=== PATIENT | female | born 1955 | race Two or more races ===

== ENCOUNTER 2020-01-22 13:54 | Emergency (ER) | payer OTHER ==
[~2020-01-22] VITALS: Ht 167.6 cm; Wt 90.7 kg
[2020-01-22 14:10] VITALS: BP 150/82
[2020-01-22] MEDS ORDERED: Methocarbamol 750mg tab ORAL ONE (14:30)
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
[2020-01-22] MEDS ORDERED: TYLENOL EXTRA500 MG ORAL (15:59)
[2020-01-22] MEDS ORDERED: LIDODERM700 M1 TOPIC (15:59)
[2020-01-22] MEDS ORDERED: ROBAXIN-500MG ORAL (15:59)
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
[2020-01-22 16:35] VITALS: BP 144/80
== END 2020-01-22 16:35 | disposition home or self-care (01) ==
LOC: EMR 14:15
DX: S16.1XXA Strain of muscle, fascia and tendon at neck level, initial encounter (principal); S20.219A Contusion of unspecified front wall of thorax, initial encounter; I10 Essential (primary) hypertension; V43.62XA Car passenger injured in collision with other type car in traffic accident, initial encounter; Y92.411 Interstate highway as the place of occurrence of the external cause
CPT/HCPCS: 71250; 74176; Z7502; 99284